=== PATIENT | male | born 1950 | race Caucasian/White ===

== ENCOUNTER → 2020-09-13 12:05 | Outpatient (BNVA) | payer MEDICARE, SELFPAY | DX: Z20.822 Contact with and (suspected) exposure to COVID-19 (principal); R39.9 Unspecified symptoms and signs involving the genitourinary system | CPT/HCPCS: 87426 ==

== ENCOUNTER 2022-10-26 12:26 | Emergency (ER) | payer MEDICARE, SELFPAY ==
[2022-10-26 12:29] VITALS: BMI 29.2
[2022-10-26 12:32] VITALS: BP 179/106; PULSE 83; RESP 16; TEMP 37.1; O2SAT 92
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
[2022-10-26 12:48] LABS: Basophils # 0.1 10^3/uL (0.0-0.1); Basophils % 0.9 %; Eosinophils # 0.1 10^3/uL (0.0-0.8); Eosinophils % 1.4 %; Hemoglobin 17.6 g/dL (11.7-16.6); Lymphocytes # 2.1 10^3/uL (0.8-4.8); Lymphocytes % 28.6 %; Mean Corpuscular HGB Conc 35.9 g/dL (30.0-36.0); Mean Corpuscular Hemoglobin 31.9 pg (28.0-34.0); Mean Corpuscular Volume 88.9 fl (80-94); Mean Platelet Volume 9.8 fL (7.4-10.4); Monocytes # 0.4 10^3/uL (0.2-0.9); Neutrophils # 4.69 10^3/uL (1.8-7.7); Neutrophils % 63.7 %; Nucleated Red Blood Cells % 0 %; Platelet Count 171 10^3/cmm (130-400); Red Blood Count 5.51 10^6/uL (4.1-5.3); Red Cell Distribution Width 11.5 % (12.1-15.1); White Blood Count 7.4 10^3/uL (4.0-10.0)
--- NOTE | 2022-10-26 12:51 | PC.PHAR ---
pt states he takes no prescription medications or otc meds
[2022-10-26 13:08] LABS: Alanine Aminotransferase 26 U/L (0-41); Albumin Level 4.3 g/dL (3.5-5.2); Alkaline Phosphatase 93 U/L (40-130); Anion Gap 16.7 (5-19); Aspartate Amino Transferase 23 U/L (0-40); Blood Urea Nitrogen 5 mg/dL (8-23); Calcium 9.1 mg/dL (8.5-10.5); Carbon Dioxide 23 mmol/L (22-29); Chloride 100 mmol/L (98-107); Globulin 4.1 g/dL (1.3-4.6); Glucose 138 mg/dL (65-115); Osmolality Calculated 281 mOsm/kg (285-295); Potassium 3.7 mmol/L (3.5-5.1); Sodium 136 mmol/L (136-145); Total Bilirubin 0.7 mg/dL (0.15-1.2); Total Protein 8.4 g/dL (6.6-8.7)
[2022-10-26 13:09] LABS: Alcohol Level < 10 mg/dL (0-10)
[2022-10-26 13:18] VITALS: BP 201/106; RESP 16; O2SAT 95
[2022-10-26 13:28] VITALS: BP 201/106
[2022-10-26] MEDS: cloNIDine 0.1 mg Tablet PO (13:28)
[2022-10-26 13:41] VITALS: BP 161/100
[2022-10-26 14:30] VITALS: BP 164/86
--- NOTE | 2022-10-31 10:37 | DCPLANNER ---
manager hematology called patient due to no primary care physician -no answer at this time.
== END 2022-10-26 14:31 | disposition home or self-care (01) ==
PROVIDERS: Emergency Provider Family Medicine
DX: S00.83XA Contusion of other part of head, initial encounter (principal); S06.0X0A Concussion without loss of consciousness, initial encounter; R03.0 Elevated blood-pressure reading, without diagnosis of hypertension; F17.290 Nicotine dependence, other tobacco product, uncomplicated; V49.40XA Driver injured in collision with unspecified motor vehicles in traffic accident, initial encounter
CPT/HCPCS: 70450; 70486; 72125; 80053; 80307; 85025; 90471; 90715; 99284

== ENCOUNTER 2022-11-30 10:52 | Outpatient (CLI) | payer MEDICARE, SELFPAY ==
--- NOTE | 2022-11-30 11:15 | USCV_ITS ---
Juan Manuel Smith Age: 72 Gender: M : 1950 Exam Date: 11/30/2022 11:22 Ordering Phys: Elias Scott MD Technologist: Exam Location: [facility] [place] Indication: AMS BP: 130 / 82 HR: Rhythm: Sinus Technical Quality: Adequate MEASUREMENTS (Male / Female) Normal Values 2D ECHO LV Diastolic Diameter PLAX 3.1 cm 4.2 - 5.9 / 3.9 - 5.3 cm LV Systolic Diameter PLAX 2.8 cm IVS Diastolic Thickness 1.1 cm 0.6 - 1.0 / 0.6 - 0.9 cm IVS Systolic Thickness 1.9 cm LVPW Diastolic Thickness 1.2 cm 0.6 - 1.0 / 0.6 - 0.9 cm LVPW Systolic Thickness 1.6 cm LVOT Diameter 2.0 cm LV Ejection Fraction 2D Teich 7.5 % LA Diameter 3.2 cm M-MODE LV Diastolic Diameter MM 5.0 cm 4.2 - 5.9 / 3.9 - 5.3 cm LV Systolic Diameter MM 2.6 cm LV Ejection Fraction MM Teich 80.2 % IVS Diastolic Thickness MM 0.9 cm 0.6 - 1.0 / 0.6 - 0.9 cm IVS Systolic Thickness MM 1.3 cm LVPW Diastolic Thickness MM 1.0 cm 0.6 - 1.0 / 0.6 - 0.9 cm LVPW Systolic Thickness MM 1.6 cm RV Diastolic Diameter MM 1.4 cm Aortic Annulus Diameter 3.5 cm LA Ao Ratio MM 0.9 MV E Point Septal Separation 0.8 cm DOPPLER AV Peak Velocity 124.0 cm/s LVOT Peak Velocity 83.0 cm/s AV Area Cont Eq vti 2.5 cm squared AV Area Cont Eq pk 2.1 cm squared MV Area PHT 3.9 cm squared Mitral E to A Ratio 0.6 MV E' Velocity 30.0 cm/s Mitral E to MV E' Ratio 8.5 Mitral E to LV E' Lateral Ratio 7.3 Mitral E to LV E' Septal Ratio 10.2 TR Peak Velocity 103.3 cm/s TR Peak Gradient 4.3 mmHg TV Peak E Velocity 57.0 cm/s Right Atrial Pressure 3.0 mmHg Pulmonary Artery Systolic Pressu 7.3 mmHg RV Acceleration Time 0.1 s FINDINGS Left Ventricle Left ventricle is normal in size. LV systolic function is normal with EF of 50 to 55%. No regional wall motion abnormalities are seen. Grade 1 diastolic dysfunction Right Ventricle Normal in size and function Right Atrium Normal in size Left Atrium Normal in size Mitral Valve Structurally normal mitral valve. Trace mitral regurgitation. Aortic Valve Structurally normal aortic valve. No significant stenosis or regurgitation. Tricuspid Valve Mild tricuspid regurgitation. Insufficient TR jet to calculate RVSP Pulmonic Valve Not well visualized Pericardium Normal Aorta Normal in size IVC Appears to be normal CONCLUSIONS LV systolic function is normal with EF 50 to 55%. Grade 1 diastolic dysfunction. Trace mitral regurgitation Mild tricuspid regurgitation. No comparison studies are available. Stephane Suárez MD (Electronically Signed) Final Date: 17 December 2022 12:09 S
== END 2022-11-30 10:53 | disposition home or self-care (01) ==
PROVIDERS: PCP Family Medicine; Visit Provider Family Medicine
DX: I08.1 Rheumatic disorders of both mitral and tricuspid valves (principal); R41.82 Altered mental status, unspecified
CPT/HCPCS: 93306

== ENCOUNTER 2022-12-04 13:45 | Outpatient (CLI) | payer MEDICARE, SELFPAY ==
--- NOTE | 2022-12-04 13:49 | MR_ITS ---
WS: [id number] MRI HEAD WITHOUT CONTRAST TECHNIQUE: Sagittal T1, T2 axial, T2 axial FLAIR, axial and coronal T1 images, axial susceptibility w eighted imaging, axial diffusion weighted images, and coronal T2 images were obtained. CLINICAL INFORMATION: TRANSIENT ALTERED MENTAL STATUS COMPARISON: None. FINDINGS: Area of partially restricted diffusion within the RIGHT parietal occipital white matter extending int o the RIGHT posterior temporal lobe. This appears partially restricted suspicious for subacute ischem ia but technically indeterminate. Mild associated localized effacement of the parietal and posterior temporal sulci. No visualized blood products. No other foci of restricted diffusion. Normal posterior fossa. Normal vascular flow voids at the skull base. No extra-axial fluid collection s. Mucosal thickening in the paranasal sinuses. Mastoid air cells demonstrate mild mucosal thickening . Normal posterior nasopharynx and parapharyngeal fat. Moderate symmetric atrophy temporal lobes and hippocampal formations. Normal optic chiasm and pituita ry infundibulum. IMPRESSION: 1. Region of partially restricted diffusion involving the RIGHT parietal occipital white matter ex tending into the RIGHT posterior temporal lobe indeterminate but suspicious for subacute ischemia. Mi ld localized edema. No significant midline shift. 2. Recommend follow-up with MRI head without and with gadolinium in 6 to 8 weeks to assess evolution 3. Mild small vessel changes with moderate parenchymal volume loss. 4. Moderate symmetric atrophy temporal lobes and hippocampal formations. 5. No hemosiderin on the susceptibly weighted images. Message LEFT for Elias Scott MD at 12/04/2022 3:31 PM.
== END 2022-12-04 13:46 | disposition home or self-care (01) ==
LOC: RAD 13:46
PROVIDERS: PCP Family Medicine; Visit Provider Family Medicine
DX: R41.82 Altered mental status, unspecified (principal); R90.89 Other abnormal findings on diagnostic imaging of central nervous system
CPT/HCPCS: 70551

== ENCOUNTER 2025-02-19 13:20 | Outpatient (CLI) | payer MEDICARE, SELFPAY ==
--- NOTE | 2025-02-19 13:26 | USR_ITS ---
PROCEDURE INFORMATION: Exam: US Non-Invasive Physiologic Bilateral Lower Extremities Arteries, Complete Exam date and time: 02/19/2025 2:46 PM Age: 74 years old Clinical indication: Pain; Leg, lower; Bilateral; CLAUDICATION TECHNIQUE: Imaging protocol: Complete bilateral noninvasive physiologic studies of lower extremity arteries, 3 or more levels or single level study with provocative functional maneuvers. Waveforms were obtained and evaluated. Images were documented and archived. Exam is complete. COMPARISON: No relevant prior studies available. FINDINGS: Right femoral arteries: Normal waveform morphology and amplitude. Right infrapopliteal arteries: Normal waveform morphology and amplitude. Left femoral arteries: Normal waveform morphology and amplitude. Left infrapopliteal arteries: Normal waveform morphology and amplitude. Right Ankle-Brachial Index: 1.09 Left Ankle-Brachial Index: 1.25 US/CV [facility] [id number] IMPRESSION: No plethysmographic evidence of stenosis or occlusion in the lower extremity.
== END 2025-02-19 13:21 | disposition home or self-care (01) ==
LOC: RAD 13:22
PROVIDERS: PCP Family Medicine; Visit Provider Family Medicine
DX: I73.9 Peripheral vascular disease, unspecified (principal)
CPT/HCPCS: 93923